=== PATIENT | female | born 1975 | race Caucasian/White ===

== ENCOUNTER 2018-05-08 14:43 | Emergency (ER) | payer SELFPAY ==
[~2018-05-08] VITALS: Ht 162.6 cm; Wt 61.2 kg
[2018-05-08 14:51] VITALS: BP 133/68
== END 2018-05-08 17:11 | disposition home or self-care (01) ==
LOC: ED 14:43
DX: S13.4XXA Sprain of ligaments of cervical spine, initial encounter (principal); S33.5XXA Sprain of ligaments of lumbar spine, initial encounter; I10 Essential (primary) hypertension; G43.909 Migraine, unspecified, not intractable, without status migrainosus; Z98.51 Tubal ligation status; V43.62XA Car passenger injured in collision with other type car in traffic accident, initial encounter; Y93.89 Activity, other specified; Y92.488 Other paved roadways as the place of occurrence of the external cause; Y99.8 Other external cause status
CPT/HCPCS: J1885